=== PATIENT | male | born 1940 | race African-American/Black ===

== ENCOUNTER → 2017-12-05 | Outpatient (CLI) | payer MEDICARE, MEDICAID ==
[~2017-12-05] MED LIST: ALLO300T2 PO; ALPR-392 MT; ASPI-1160 PO; CODE473S2 PO; HYDR-4005 PO; LISI10TA5 PO; LOSA100T14 PO; REGADENOSON 0.4 MG/5 ML IV ONE; RIVA10TA PO; SPIR25TA4 PO; TAMS0.4C31 PO
== END | disposition home or self-care (01) ==
LOC: NM 07:30
PROVIDERS: ATTEND Internal Medicine Cardiovascular Disease
DX: Z01.818 Encounter for other preprocedural examination (principal); I51.7 Cardiomegaly; I50.9 Heart failure, unspecified; I42.8 Other cardiomyopathies; R94.31 Abnormal electrocardiogram [ECG] [EKG]
CPT/HCPCS: 78452; 93017; A9500; J2785

== ENCOUNTER 2019-06-15 13:33 | Emergency (ER) | payer MEDICARE, MEDICAID ==
[~2019-06-15] VITALS: Ht 177.8 cm; Wt 96.0 kg
[~2019-06-15 13:33] MED LIST changes: -ALPR-392 MT; -ASPI-1160 PO; +CARV25TA47 PO; -CODE473S2 PO; +FURO-152 PO; -LISI10TA5 PO; -LOSA100T14 PO; +PROM473S4 PO; -REGADENOSON 0.4 MG/5 ML IV ONE; -SPIR25TA4 PO; +SPIR25TA6 PO
[2019-06-15 15:31] LABS: CHLORIDE 108 mEq/L (98-107)
[2019-06-15 15:33] LABS: BASOPHILS % 0.6 % (0.0-2.0); EOSINOPHILS % 2.7 % (0.0-5.0); HEMOGLOBIN. 13.1 g/dL (14.0-18.0); LYMPHOCYTES % 17.5 % (20.0-50.0); MEAN CORPUSCULAR HEMOGLOBIN 31.3 pg (28.0-32.0); MEAN PLATELET VOLUME 8.8 fl (7.4-10.4); MONOCYTES % 6.9 % (2.0-8.0); NEUTROPHILS % 72.3 % (40.0-76.0); PLATELET 171 x1000/uL (130-400); RED CELL DISTRIBUTION WIDTH 14.2 % (11.6-14.6)
[2019-06-15 17:43] VITALS: BP 143/86
== END 2019-06-15 18:03 | disposition home or self-care (01) ==
LOC: ER 13:33
DX: J44.9 Chronic obstructive pulmonary disease, unspecified (principal); M10.9 Gout, unspecified; M06.9 Rheumatoid arthritis, unspecified; I11.0 Hypertensive heart disease with heart failure; I50.9 Heart failure, unspecified; I48.91 Unspecified atrial fibrillation; Z79.01 Long term (current) use of anticoagulants
CPT/HCPCS: 36415; 71045; 83880; 84484; 93005; 99284